=== PATIENT | female | born 1980 | race Two or more races ===

== ENCOUNTER 2024-10-01 09:01 | Outpatient (CLI) | payer OTHER ==
[~2024-10-01 09:01] MED LIST: AZITHROMYCIN250 MG PO; BENZONATATE100 MG PO; ETHAMBUTOL HCL400 MG PO; FAMOTIDINE20 MG PO; Ferro-Plex CAPLET PO; INTESTINEX680 M1 PO; PANTOPRAZOLE SO40 MG PO; RIFAMPIN300 MG PO; Tussi-Organidin Dm-S PO
== END 2024-10-01 09:07 | disposition home or self-care (01) ==
LOC: RAD 09:01
PROVIDERS: ATTEND General Practice
DX: J93.9 Pneumothorax, unspecified (principal); A31.0 Pulmonary mycobacterial infection

== ENCOUNTER 2024-10-01 11:09 | Inpatient (IN) | payer OTHER ==
[~2024-10-01] VITALS: Ht 152.4 cm; Wt 49.9 kg
--- NOTE | 2024-10-01 11:49 | NUR ---
SE RECIBE PTE ALERTA ORIENTADA X3.PTE SE ENCONTRABA EN ESTUDIO DE RADIOLOGIA, RON LA REFIERE A RENZO DE EMERGENCIA POR NEUMOTORAX.SE RECIBE PTE JUNTO A FAMILIAR EN SILLA DE DRE,SE PRIYANKA EKG Y SE PRESENTA A .
[2024-10-01 12:07] LABS: HEMATOCRIT 32.5 % (36.0-45.00); MEAN CELL VOLUME 67.6 fL (80.00-100.00); MEAN CORPUSCULAR HGB CONC 31.9 g/dl (32.0-36.0); PLATELET COUNT 458 K/uL (150-450); RED BLOOD COUNT 4.81 M/uL (4.00-6.00); RED CELL DISTRIBUTION WIDTH 16.5 % (11.5-14.5)
[2024-10-01 12:08] LABS: HEMOGLOBIN 10.4 g/dL (12.0-15.00); MEAN CORPUSCULAR HEMOGLOBIN 21.6 pg (27.00-32.0)
[2024-10-01 12:25] LABS: INR 1.21; PARTIAL THROMBOPLASTIN TIME 32.5 SECONDS (22.0-34.0)
[2024-10-01 12:30] LABS: ALBUMIN 2.8 gm/dL (3.4-5.0); BILIRUBIN TOTAL 0.35 mg/dL (0.3-1.2); CREATININE SERUM 0.6 mg/dL (0.55-1.02); GFR 108.6; GLOBULINA 4.1 G/DL (2.4-3.5); POTASSIUM 4.62 mEq/L (3.5-5.1); TOTAL PROTEIN 6.9 gm/dL (6.4-8.2)
--- NOTE | 2024-10-01 12:55 | NUR ---
SE RECIBE PACIENTE A AREA DE CRITICO, CAMA #3. SE COLOCA CANULA NASAL A 3L. PACIENTE SE CONECTA A MONITOR CARDIACO Y OXIMETRIA DE PULSO CONTINUA. SE CANALIZA X2 EN BRAZO DERECHO CON ANGIOS #18. AMBAS VENOPUNCIONES SE ENCUENTRAN PATENTES, LIBRES DE EDEMA Y PROCESOS INFECCIOSOS. SE EXTRAEN MUESTRAS DE LABORATORIO MONCHO ORDEN MEDICA. SE MANTIENE EN OBSERVACION POR CAMBIOS SIGNIFICATIVOS EN WANG CONDICION.
[2024-10-01 13:47] LABS: PH,URINE 6.5 (5.0-8.0); URINE APPEARANCE Clear; URINE BILIRRUBIN Negative (NEGATIVE); URINE BLOOD Negative; URINE COLOR Yellow; URINE GLUCOSE Negative (NEGATIVE); URINE KETONE Negative (NEGATIVE); URINE LEUKOCYTE Small; URINE NITRATE Negative; URINE PROTEIN Negative (NEGATIVE); URINE UROBILINOGEN 0.2 E.U./dl
[2024-10-01 13:50] LABS: URINE BACTERIA 12.2 uL (0.0-1933); URINE EPITHELIAL CELLS 3.1 uL (0.0-38.8); URINE WBC 23.3 uL (0.0-23.2)
--- NOTE | 2024-10-01 15:39 | NUR ---
SE RECIBE A PACIENTE FEMENINA ALERTA Y ORIENTADA X3 CONECTADA A MONITOR CARDIACO Y OXIMETRIA CONTINUA, SIGNOS VITALES EN MONITOR: BP 100/55 (68), HR 93LT/MIN, SPO2 100% Y RR 18. PACIENTE AL MOMENTO CON NON RE BREATHING MASK AL 50%, TOLERANDO LA MISMA. CANALIZADA CON #18 X2 RT SIDE, PATENTES, LIBRES DE EDEMA Y ERITEMA Y CON H/L. EXTREMIDADES SUPERIORES SE OBSERVAN LIBRES DE EDEMA Y ERITEMA. ABDOMEN NO DISTENDIDO, DEPRESIBLE, BRENDA DE DOLOR A LA PALPACION Y CON PERISTALSIS PRESENTE. PACIENTE ORINA DE MANERA ESPONTANEA. EXTREMIDADES INFERIORES SE OBSERVAN LIBRES DE EDEMA Y ERITEMA. PACIENTE SE MANTIENE EN CAMA A NIVEL DE PISO JUNTO CON BARRANDAS ELEVADAS. PENDIENTE A CONSULTA CON DR. SHADY SOUSA DE MEDICINA INTERNA.
[2024-10-01 15:49] LABS: ABG PH 7.473 (7.35-7.45); ABG pCO2 35.7 mmHg (35-45)
[2024-10-01 15:50] LABS: ABG PO2 136.6 mmHg (80-100); BASE EXCESS 2.3 mmol/l; BICARBONATE 25.6 mmol/l (23-25); SaO2 99.3 %; Tco2 26.7 mmol/l
[2024-10-01 15:54] LABS: o2 32 %
[2024-10-01 15:55] LABS: allen test SATISFACTORY; puncture site RADIAL RIGHT
[2024-10-01] MEDS ORDERED: ALBUTEROL SULFATE 3 ML/2.5 MG AMPUL.NEB IH SCH (17:22)
[2024-10-01] MEDS ORDERED: 0.9 % SODIUM CHLORIDE 1,000 ML IV SCH (17:30)
[2024-10-01] MEDS ORDERED: ONDANSETRON HCL 2 MG/ML VIAL IV PRN (17:45)
[2024-10-01] MEDS ORDERED: ALBUTEROL SULFATE 3 ML/2.5 MG AMPUL.NEB IH ONE (18:03)
[2024-10-01 19:52] VITALS: BP 84/50; O2SAT 100
[2024-10-01] MEDS ORDERED: FAMOTIDINE/PF 20 MG in 0.9 % SODIUM CHLORIDE 8 ML IV PUSH SCH (21:00)
[2024-10-02 00:15] VITALS: BP 90/60; O2SAT 100
[2024-10-02] MEDS ORDERED: ALBUTEROL SULFATE 3 ML/2.5 MG AMPUL.NEB IH ONE (00:41)
[2024-10-02 06:57] LABS: INR 1.2; PARTIAL THROMBOPLASTIN TIME 31.8 SECONDS (22.0-34.0)
[2024-10-02 06:58] LABS: PROTHROMBIN TIME 12.9 SECONDS (9.0-11.5)
[2024-10-02 07:13] LABS: HEMATOCRIT 31.4 % (36.0-45.00); HEMOGLOBIN 9.9 g/dL (12.0-15.00); MEAN CORPUSCULAR HEMOGLOBIN 21.6 pg (27.00-32.0); MEAN CORPUSCULAR HGB CONC 31.4 g/dl (32.0-36.0); PLATELET COUNT 435 K/uL (150-450); RED BLOOD COUNT 4.56 M/uL (4.00-6.00); RED CELL DISTRIBUTION WIDTH 16.3 % (11.5-14.5)
[2024-10-02 07:19] LABS: MEAN CELL VOLUME 68.8 fL (80.00-100.00)
[2024-10-02 07:36] LABS: ERYTHROCYTE SEDIMENTATION RATE > 130 mm/hr
[2024-10-02 07:39] LABS: PH,URINE 6.5 (5.0-8.0); URINE APPEARANCE Cloudy; URINE BILIRRUBIN Negative (NEGATIVE); URINE BLOOD Negative; URINE COLOR Yellow; URINE GLUCOSE Negative (NEGATIVE); URINE KETONE Negative (NEGATIVE); URINE LEUKOCYTE Small; URINE NITRATE Negative; URINE PROTEIN Negative (NEGATIVE); URINE UROBILINOGEN 0.2 E.U./dl
[2024-10-02 07:40] VITALS: BP 80/53; O2SAT 100
[2024-10-02 07:40] LABS: URINE BACTERIA 18.3 uL (0.0-1933); URINE EPITHELIAL CELLS 8.5 uL (0.0-38.8); URINE RBC 12.6 uL (0.0-20.8); URINE WBC 53.7 uL (0.0-23.2)
[2024-10-02 07:43] LABS: URINE CAST 0.14 uL (0.0-1.40)
[2024-10-02 07:53] LABS: ALBUMIN 2.6 gm/dL (3.4-5.0); BILIRUBIN TOTAL 0.5 mg/dL (0.3-1.2); BILIRUBIN,CONJUGATED 0.14 mg/dL (0.0-0.2); BILIRUBIN,UNCONJUGATED 0.36 mg/dL (0.0-0.6); CALCIUM 8.9 mg/dL (8.5-10.1); CHOL HDL RATIO 3.1 (0-5.0); CREATININE SERUM 0.57 mg/dL (0.55-1.02); GFR 115.22; MAGNESIUM 1.9 mg/dL (1.8-2.4); PHOSPHOROUS 4.5 mg/dL (2.5-4.9); POTASSIUM 5.24 mEq/L (3.5-5.1); T4 FREE 1.4 NG/ML (0.76-1.46); TOTAL PROTEIN 6.4 gm/dL (6.4-8.2); TSH 1.74 uIU/mL (0.358-3.74)
[2024-10-02 07:55] LABS: C-REACTIVE PROTEIN 9.16 MG/DL (0.00-0.29)
[2024-10-02] MEDS ORDERED: ENOXAPARIN SODIUM 40 MG/0.4 ML SYRINGE SUBCUTANEO SCH (09:00)
[2024-10-02] MEDS ORDERED: AZITHROMYCIN 500 MG TABLET PO SCH (09:00)
[2024-10-02] MEDS ORDERED: ETHAMBUTOL HCL 400 MG TABLET PO SCH (09:00)
[2024-10-02] MEDS ORDERED: RIFAMPIN 300 MG CAPSULE PO SCH ×2 (09:00)
[2024-10-02] MEDS ORDERED: PATIENTS OWN MEDICATION (MEDICAMENTO EN PISO) IH SCH (17:00)
[2024-10-02 17:41] VITALS: O2SAT 100
[2024-10-02 18:18] VITALS: BP 104/59
[2024-10-02 21:20] VITALS: O2SAT 100
[2024-10-03] VITALS (9 sets, daily range): BP systolic 92–98; BP diastolic 55–69; O2SAT 97–100
[2024-10-04] VITALS (10 sets, daily range): BP systolic 80–83; BP diastolic 48–52; O2SAT 88–100
[2024-10-05] VITALS (11 sets, daily range): BP systolic 81–93; BP diastolic 45–104; O2SAT 94–100
[2024-10-06 01:00] VITALS: O2SAT 97
[2024-10-06 02:03] VITALS: BP 82/48; O2SAT 100
[2024-10-06 06:35] VITALS: O2SAT 100
[2024-10-06 09:10] VITALS: BP 107/60; O2SAT 99
[2024-10-06 09:21] VITALS: O2SAT 98
== END 2024-10-06 12:34 | disposition home or self-care (01) | DRG 868 ==
LOC: ER 11:09 → MEDJ 18:51 → SEC-K 18:51 → MEDJ 10-02 09:42
PROVIDERS: General Practice; ADMIT Internal Medicine; ATTEND Internal Medicine
PROC: BW24ZZZ Computerized Tomography (CT Scan) of Chest and Abdomen (ICD-10-PCS; principal; 2024-10-01)
PROC: 4A12X4Z Monitoring of Cardiac Electrical Activity, External Approach (ICD-10-PCS; 2024-10-02)
DX: A31.2 Disseminated mycobacterium avium-intracellulare complex (DMAC) (principal); J93.12 Secondary spontaneous pneumothorax

== ENCOUNTER 2024-11-08 00:46 | Inpatient (IN) | payer OTHER ==
[~2024-11-08] VITALS: Ht 165.1 cm; Wt 59.0 kg
[2024-11-08] MEDS ORDERED: IPRATROPIUM/ALBUTEROL SULFATE 3 ML AMPUL.NEB IH SCH (01:57)
[2024-11-08] MEDS ORDERED: 0.9 % SODIUM CHLORIDE 1,000 ML IV STA (01:59)
[2024-11-08] MEDS ORDERED: IPRATROPIUM/ALBUTEROL SULFATE 3 ML AMPUL.NEB IH ONE ×3 (02:17→13:42)
[2024-11-08 03:11] LABS: HEMATOCRIT 32.1 % (36.0-45.00); MEAN CELL VOLUME 68.8 fL (80.00-100.00); MEAN CORPUSCULAR HEMOGLOBIN 21.4 pg (27.00-32.0); MEAN CORPUSCULAR HGB CONC 31.2 g/dl (32.0-36.0); PLATELET COUNT 571 K/uL (150-450); RED BLOOD COUNT 4.66 M/uL (4.00-6.00); RED CELL DISTRIBUTION WIDTH 16.7 % (11.5-14.5)
[2024-11-08 03:25] LABS: ALBUMIN 2.9 gm/dL (3.4-5.0); BILIRUBIN TOTAL 0.4 mg/dL (0.3-1.2); CREATININE SERUM 0.66 mg/dL (0.55-1.02); GFR 97.29; GLOBULINA 4.3 G/DL (2.4-3.5); POTASSIUM 4.42 mEq/L (3.5-5.1); TOTAL PROTEIN 7.2 gm/dL (6.4-8.2)
[2024-11-08 03:29] LABS: D DIMER 0.88 MG/L; PARTIAL THROMBOPLASTIN TIME 31.3 SECONDS (22.0-34.0)
[2024-11-08 03:58] LABS: INR 1.2; PROTHROMBIN TIME 12.9 SECONDS (9.0-11.5)
[2024-11-08 04:41] LABS: proBNP 255 pg/mL (0-51.9)
[2024-11-08 04:44] LABS: TROPONIN I hs < 3.0 PG/ML (42.2-82.3)
[2024-11-08 06:38] LABS: ABG PH 7.532 (7.35-7.45); ABG PO2 98.5 mmHg (80-100); ABG pCO2 27.9 mmHg (35-45); BASE EXCESS 1.5 mmol/l; BICARBONATE 22.8 mmol/l (23-25); SaO2 98.4 %; Tco2 23.7 mmol/l
[2024-11-08 06:39] LABS: allen test SATISFACTORY; o2 28 %; puncture site RADIAL LEFT
[2024-11-08 09:19] LABS: URINE APPEARANCE Clear; URINE BACTERIA 7.3 uL (0.0-1933); URINE BILIRRUBIN Negative (NEGATIVE); URINE BLOOD Negative; URINE COLOR Yellow; URINE GLUCOSE Negative (NEGATIVE); URINE KETONE Negative (NEGATIVE); URINE LEUKOCYTE Negative; URINE NITRATE Negative; URINE PROTEIN Negative (NEGATIVE); URINE RBC 3.2 uL (0.0-20.8); URINE UROBILINOGEN 0.2 E.U./dl; URINE WBC 2.4 uL (0.0-23.2)
[2024-11-08 09:43] LABS: URINE EPITHELIAL CELLS 1.2 uL (0.0-38.8)
[2024-11-08] MEDS ORDERED: RINGERS SOLUTION,LACTATED 1,000 ML IV STA (11:24)
[2024-11-08] MEDS ORDERED: CEFAZOLIN SODIUM 1,000 MG VIAL ONE (11:36)
[2024-11-08] MEDS ORDERED: LIDOCAINE HCL 1% 10ML VIAL ONE (11:36)
[2024-11-08] MEDS ORDERED: POVIDONE-IODINE 118 ML BOTT TOP ONE (11:37)
[2024-11-08] MEDS ORDERED: MIDAZOLAM HCL 2 MG/2 ML VIAL IV PUSH ONE (12:30)
[2024-11-08] MEDS ORDERED: CEFAZOLIN SODIUM 1,000 MG VIAL IV ONE (12:30)
[2024-11-08] MEDS ORDERED: MORPHINE SULFATE 2 MG/ML CARTRIDGE IV ONE (12:30)
[2024-11-08 15:00] VITALS: BP 96/72; O2SAT 100
[2024-11-08] MEDS ORDERED: MORPHINE SULFATE 2 MG/ML SYRINGE IV PRN (15:00)
[2024-11-08] MEDS ORDERED: RINGERS SOLUTION,LACTATED 1,000 ML IV SCH (15:00)
[2024-11-08] MEDS ORDERED: BENZONATATE 100 MG CAPSULE PO ONE (15:47)
[2024-11-08] MEDS ORDERED: AZITHROMYCIN 500 MG TABLET PO ONE (15:47)
[2024-11-08] MEDS ORDERED: AZITHROMYCIN 500 MG TABLET PO SCH (17:00)
[2024-11-08] MEDS ORDERED: BENZONATATE 100 MG CAPSULE PO SCH (17:00)
[2024-11-08] MEDS ORDERED: ETHAMBUTOL HCL 400 MG TABLET PO SCH (17:00)
[2024-11-08] MEDS ORDERED: RIFAMPIN 300 MG CAPSULE PO SCH (17:00)
[2024-11-08 19:17] VITALS: BP 100/67; O2SAT 100
[2024-11-08 20:03] VITALS: O2SAT 100
[2024-11-09] VITALS (8 sets, daily range): BP systolic 90–100; BP diastolic 50–60; O2SAT 97–100
[2024-11-09] MEDS ORDERED: RIFAMPIN 300 MG CAPSULE PO SCH ×2 (05:00→11:02)
[2024-11-09] MEDS ORDERED: ETHAMBUTOL HCL 400 MG TABLET PO SCH ×2 (05:00→11:03)
[2024-11-09 08:23] LABS: ALBUMIN 2.5 gm/dL (3.4-5.0); BILIRUBIN TOTAL 0.74 mg/dL (0.3-1.2); CALCIUM 8.6 mg/dL (8.5-10.1); CREATININE SERUM 0.57 mg/dL (0.55-1.02); GFR 115.22; GLOBULINA 3.9 G/DL (2.4-3.5); MAGNESIUM 2.1 mg/dL (1.8-2.4); PHOSPHOROUS 4.8 mg/dL (2.5-4.9); POTASSIUM 4.93 mEq/L (3.5-5.1); TOTAL PROTEIN 6.4 gm/dL (6.4-8.2)
[2024-11-09] MEDS ORDERED: PANTOPRAZOLE SODIUM 40 MG TABLET.DR PO SCH (09:00)
[2024-11-09] MEDS ORDERED: ENOXAPARIN SODIUM 40 MG/0.4 ML SYRINGE SUBCUTANEO SCH (09:00)
[2024-11-09 09:14] LABS: HEMATOCRIT 32.3 % (36.0-45.00); HEMOGLOBIN 9.9 g/dL (12.0-15.00); MEAN CORPUSCULAR HEMOGLOBIN 21.3 pg (27.00-32.0); MEAN CORPUSCULAR HGB CONC 30.7 g/dl (32.0-36.0); PLATELET COUNT 510 K/uL (150-450); RED BLOOD COUNT 4.66 M/uL (4.00-6.00); RED CELL DISTRIBUTION WIDTH 16.6 % (11.5-14.5)
[2024-11-09 09:18] LABS: MEAN CELL VOLUME 69.3 fL (80.00-100.00)
[2024-11-10] VITALS (9 sets, daily range): BP systolic 82–90; BP diastolic 48–53; O2SAT 97–100
[2024-11-10] MEDS ORDERED: AMIKACIN SULFATE 250 MG/ML - 1GM VIAL IV SCH (09:00)
[2024-11-11] VITALS (9 sets, daily range): BP systolic 90–103; BP diastolic 54–65; O2SAT 99–100
[2024-11-12] VITALS (9 sets, daily range): BP systolic 91–111; BP diastolic 53–71; O2SAT 98–100
[2024-11-12] MEDS ORDERED: AMIKACIN SULFATE 250 MG/ML - 1GM VIAL IV SCH ×2 (09:00)
[2024-11-13] VITALS (8 sets, daily range): BP systolic 90–93; BP diastolic 54–56; O2SAT 98–100
[2024-11-13 20:08] LABS: afb spe proc Concentration (.)
[2024-11-13] MEDS ORDERED: CODEINE PHOSPHATE/GUAIFENESIN 5 ML ML PO SCH (23:00)
[2024-11-14] VITALS (9 sets, daily range): BP systolic 80–100; BP diastolic 43–63; O2SAT 90–99
[2024-11-14 07:07] LABS: MEAN CORPUSCULAR HEMOGLOBIN 21.3 pg (27.00-32.0); MEAN CORPUSCULAR HGB CONC 30.9 g/dl (32.0-36.0); PLATELET COUNT 420 K/uL (150-450); RED BLOOD COUNT 4.22 M/uL (4.00-6.00); RED CELL DISTRIBUTION WIDTH 16.4 % (11.5-14.5)
[2024-11-14 07:22] LABS: ALBUMIN 2.4 gm/dL (3.4-5.0); BILIRUBIN TOTAL 0.47 mg/dL (0.3-1.2); CALCIUM 8.6 mg/dL (8.5-10.1); CREATININE SERUM 0.48 mg/dL (0.55-1.02); GFR 140.5; GLOBULINA 3.6 G/DL (2.4-3.5); POTASSIUM 4.54 mEq/L (3.5-5.1)
[2024-11-14 07:28] LABS: MEAN CELL VOLUME 68.7 fL (80.00-100.00)
[2024-11-14 09:23] LABS: FOLIC ACID 4.67 ng/ml (4.78-20)
[2024-11-14] MEDS ORDERED: VITAMIN B COMPLEX 1 EACH PO SCH (09:45)
[2024-11-14] MEDS ORDERED: AMINO ACIDS 1 EACH TABLET PO SCH (09:46)
[2024-11-14] MEDS ORDERED: LACTOBACILLUS ACIDOPHILUS 1 CAP CAP PO SCH (09:46)
[2024-11-14] MEDS ORDERED: IRON FUM,PS/FOLIC/BCOMP,C NO.9 1 CAP CAPSULE PO SCH (09:46)
[2024-11-14 10:05] LABS: IMMUNOGLOBULIN A 289 mg/dL (87-352); IMMUNOGLOBULIN G 1464 mg/dL (586-1602); IMMUNOGLOBULIN M 104 mg/dL (26-217)
[2024-11-15] VITALS (9 sets, daily range): BP systolic 85–93; BP diastolic 52–56; O2SAT 90–100
[2024-11-16] VITALS (9 sets, daily range): BP systolic 90–98; BP diastolic 48–66; O2SAT 97–100
[2024-11-16] MEDS ORDERED: CODEINE PHOSPHATE/GUAIFENESIN 5 ML ML PO SCH (23:45)
[2024-11-17] VITALS (9 sets, daily range): BP systolic 86–108; BP diastolic 55–62; O2SAT 98–100
[2024-11-18] VITALS (10 sets, daily range): BP systolic 90–104; BP diastolic 55–61; O2SAT 89–100
[2024-11-18 06:49] LABS: MEAN CORPUSCULAR HEMOGLOBIN 21.5 pg (27.00-32.0); MEAN CORPUSCULAR HGB CONC 31.1 g/dl (32.0-36.0); PLATELET COUNT 411 K/uL (150-450); RED BLOOD COUNT 4.19 M/uL (4.00-6.00); RED CELL DISTRIBUTION WIDTH 16.7 % (11.5-14.5)
[2024-11-18 06:51] LABS: MEAN CELL VOLUME 69.2 fL (80.00-100.00)
[2024-11-18 07:01] LABS: ALBUMIN 2.4 gm/dL (3.4-5.0); BILIRUBIN TOTAL 0.24 mg/dL (0.3-1.2); CALCIUM 8.9 mg/dL (8.5-10.1); CREATININE SERUM 0.51 mg/dL (0.55-1.02); GLOBULINA 3.8 G/DL (2.4-3.5); POTASSIUM 4.59 mEq/L (3.5-5.1); TOTAL PROTEIN 6.2 gm/dL (6.4-8.2)
[2024-11-19] VITALS (8 sets, daily range): BP systolic 90–98; BP diastolic 52–56; O2SAT 93–100
[2024-11-19] MEDS ORDERED: AMIKACIN SULFATE 10 MG/ML REDILUIDO IV SCH (09:00)
[2024-11-20] VITALS (8 sets, daily range): BP systolic 87–108; BP diastolic 55–69; O2SAT 90–100
[2024-11-21] VITALS (9 sets, daily range): BP systolic 98–109; BP diastolic 62–65; O2SAT 98–100
[2024-11-22] VITALS (8 sets, daily range): BP systolic 93–119; BP diastolic 61–85; O2SAT 99–100
[2024-11-22] MEDS ORDERED: AZITHROMYCIN 500 MG TABLET PO SCH (21:00)
[2024-11-23] VITALS (7 sets, daily range): BP systolic 95–100; BP diastolic 56–64; O2SAT 89–100
[2024-11-24] VITALS (7 sets, daily range): BP systolic 86–103; BP diastolic 52–64; O2SAT 90–100
[2024-11-25 01:25] VITALS: BP 89/51; O2SAT 100
[2024-11-25 06:26] LABS: HEMATOCRIT 29.5 % (36.0-45.00); HEMOGLOBIN 9.3 g/dL (12.0-15.00); MEAN CORPUSCULAR HGB CONC 31.6 g/dl (32.0-36.0); PLATELET COUNT 406 K/uL (150-450); RED BLOOD COUNT 4.25 M/uL (4.00-6.00); RED CELL DISTRIBUTION WIDTH 17.3 % (11.5-14.5)
[2024-11-25 06:31] LABS: MEAN CELL VOLUME 69.5 fL (80.00-100.00)
[2024-11-25 06:50] LABS: ALBUMIN 2.5 gm/dL (3.4-5.0); BILIRUBIN TOTAL 0.21 mg/dL (0.3-1.2); CALCIUM 8.7 mg/dL (8.5-10.1); CREATININE SERUM 0.53 mg/dL (0.55-1.02); GFR 125.32; POTASSIUM 4.28 mEq/L (3.5-5.1); TOTAL PROTEIN 6.5 gm/dL (6.4-8.2)
[2024-11-25 08:45] VITALS: BP 86/54; O2SAT 100
[2024-11-25 17:22] VITALS: BP 99/66; O2SAT 100
[2024-11-25 20:47] VITALS: O2SAT 100
[2024-11-26] VITALS (9 sets, daily range): BP systolic 91–100; BP diastolic 55–62; O2SAT 93–99
[2024-11-26] MEDS ORDERED: AMIKACIN SULFATE 10 MG/ML REDILUIDO IV SCH ×2 (09:00→12:00)
[2024-11-26] MEDS ORDERED: AZITHROMYCIN 500 MG TABLET PO SCH (21:00)
[2024-11-27] VITALS (9 sets, daily range): BP systolic 89–101; BP diastolic 58–64; O2SAT 99–100
[2024-11-27] MEDS ORDERED: BACITRACIN 28.35 GM OINT.TUBE TOP SCH (17:00)
[2024-11-28] VITALS (9 sets, daily range): BP systolic 95–118; BP diastolic 60–80; O2SAT 90–99
[2024-11-28] MEDS ORDERED: AMIKACIN SULFATE 10 MG/ML REDILUIDO IV SCH (09:00)
[2024-11-29] VITALS (10 sets, daily range): BP systolic 92–99; BP diastolic 57–63; O2SAT 96–99
[2024-11-29 12:12] LABS: HEMATOCRIT 35.4 % (36.0-45.00); HEMOGLOBIN 11.2 g/dL (12.0-15.00); MEAN CORPUSCULAR HGB CONC 31.7 g/dl (32.0-36.0); PLATELET COUNT 513 K/uL (150-450); RED BLOOD COUNT 5.09 M/uL (4.00-6.00); RED CELL DISTRIBUTION WIDTH 18.5 % (11.5-14.5)
[2024-11-29 12:14] LABS: MEAN CELL VOLUME 69.6 fL (80.00-100.00)
[2024-11-29 12:27] LABS: BILIRUBIN TOTAL 0.2 mg/dL (0.3-1.2); CALCIUM 9.1 mg/dL (8.5-10.1); CREATININE SERUM 0.61 mg/dL (0.55-1.02); GFR 106.55; GLOBULINA 4.8 G/DL (2.4-3.5); PHOSPHOROUS 4.4 mg/dL (2.5-4.9); POTASSIUM 4.02 mEq/L (3.5-5.1); TOTAL PROTEIN 7.8 gm/dL (6.4-8.2)
[2024-11-30] VITALS (8 sets, daily range): BP systolic 92–113; BP diastolic 55–72; O2SAT 97–99
[2024-12-01] VITALS (9 sets, daily range): BP systolic 86–100; BP diastolic 52–66; O2SAT 95–100
[2024-12-01] MEDS ORDERED: ALBUTEROL SULFATE 3 ML/2.5 MG AMPUL.NEB IH STA (20:00)
[2024-12-02] VITALS (9 sets, daily range): BP systolic 87–160; BP diastolic 51–61; O2SAT 89–100
[2024-12-02] MEDS ORDERED: ALBUTEROL SULFATE 3 ML/2.5 MG AMPUL.NEB IH SCH (09:00)
[2024-12-03] VITALS (9 sets, daily range): BP systolic 99–103; BP diastolic 63–66; O2SAT 89–100
[2024-12-03 09:38] LABS: HEMATOCRIT 31.6 % (36.0-45.00); MEAN CELL VOLUME 70.1 fL (80.00-100.00); MEAN CORPUSCULAR HEMOGLOBIN 22.2 pg (27.00-32.0); MEAN CORPUSCULAR HGB CONC 31.6 g/dl (32.0-36.0); PLATELET COUNT 441 K/uL (150-450); RED BLOOD COUNT 4.51 M/uL (4.00-6.00); RED CELL DISTRIBUTION WIDTH 19.4 % (11.5-14.5)
[2024-12-03 10:49] LABS: ALBUMIN 2.8 gm/dL (3.4-5.0); BILIRUBIN TOTAL 0.24 mg/dL (0.3-1.2); CALCIUM 9.3 mg/dL (8.5-10.1); CREATININE SERUM 0.58 mg/dL (0.55-1.02); GFR 112.93; GLOBULINA 4.3 G/DL (2.4-3.5); MAGNESIUM 2.1 mg/dL (1.8-2.4); POTASSIUM 4.26 mEq/L (3.5-5.1); TOTAL PROTEIN 7.1 gm/dL (6.4-8.2)
[2024-12-04] VITALS (8 sets, daily range): BP systolic 88–97; BP diastolic 51–62; O2SAT 88–100
[2024-12-05] VITALS (8 sets, daily range): BP systolic 90–94; BP diastolic 56–66; O2SAT 93–100
[2024-12-05 10:45] LABS: ALBUMIN 2.6 gm/dL (3.4-5.0); BILIRUBIN TOTAL 0.23 mg/dL (0.3-1.2); CALCIUM 8.8 mg/dL (8.5-10.1); CREATININE SERUM 0.59 mg/dL (0.55-1.02); GFR 110.73; GLOBULINA 3.7 G/DL (2.4-3.5); POTASSIUM 3.96 mEq/L (3.5-5.1); TOTAL PROTEIN 6.3 gm/dL (6.4-8.2)
[2024-12-06 19:08] LABS: afb smear Positive (.); afb spe proc Concentration (.)
[2024-12-09 11:05] LABS: afb culture Positive (.); afb smear Positive (.)
== END 2024-12-05 18:34 | disposition home or self-care (01) | DRG 199 ==
LOC: ER 00:49 → MEDJ 14:56
PROVIDERS: Internal Medicine; Internal Medicine Hematology & Oncology; Internal Medicine Infectious Disease; Student in an Organized Health Care Education/Training Program; ADMIT Internal Medicine; ATTEND Internal Medicine
PROC: BB24Y0Z Computerized Tomography (CT Scan) of Bilateral Lungs using Other Contrast, Unenhanced and Enhanced (ICD-10-PCS; principal; 2024-11-08)
PROC: 4A12X4Z Monitoring of Cardiac Electrical Activity, External Approach (ICD-10-PCS; 2024-11-08)
PROC: 0W9B00Z Drainage of Left Pleural Cavity with Drainage Device, Open Approach (ICD-10-PCS; 2024-11-08)
PROC: BB24ZZZ Computerized Tomography (CT Scan) of Bilateral Lungs (ICD-10-PCS; 2024-11-19)
PROC: BB24ZZZ Computerized Tomography (CT Scan) of Bilateral Lungs (ICD-10-PCS; 2024-11-28)
PROC: 3E0F7GC Introduction of Other Therapeutic Substance into Respiratory Tract, Via Natural or Artificial Opening (ICD-10-PCS; 2024-12-01)
DX: J93.11 Primary spontaneous pneumothorax (principal); J18.9 Pneumonia, unspecified organism; A31.0 Pulmonary mycobacterial infection; N17.8 Other acute kidney failure; I31.39 Other pericardial effusion (noninflammatory); R09.02 Hypoxemia; D64.9 Anemia, unspecified; D72.829 Elevated white blood cell count, unspecified; D75.838 Other thrombocytosis

== ENCOUNTER 2025-01-06 10:27 | Outpatient (CLI) | payer OTHER | END 2025-01-08 10:30 | disposition home or self-care (01) | LOC: RAD 10:27 | PROVIDERS: ATTEND General Practice | DX: A31.0 Pulmonary mycobacterial infection (principal); J47.9 Bronchiectasis, uncomplicated ==

== ENCOUNTER 2025-06-15 08:11 | Emergency (ER) | payer OTHER ==
[~2025-06-15] VITALS: Ht 167.6 cm; Wt 47.6 kg
[2025-06-15] MEDS ORDERED: CLOFAZIMINE1 GM MC (09:17)
[2025-06-15] MEDS ORDERED: KETOROLAC TROMETHAMINE 15 MG VIAL IU ONE (10:00)
[2025-06-15] MEDS ORDERED: IPRATROPIUM/ALBUTEROL SULFATE 3 ML AMPUL.NEB IH ONE ×2 (10:00→10:48)
[2025-06-15] MEDS ORDERED: 0.9 % SODIUM CHLORIDE 1,000 ML IV ONE (10:00)
[2025-06-15] MEDS ORDERED: KETOROLAC TROMETHAMINE 30 MG VIAL ONE (10:32)
[2025-06-15 11:08] LABS: BASO % 0.5 % (0.1-1.2); EOS # 0.14 (0.04-0.54); EOS % 0.9 % (0.7-7.0); LYMPH # 0.90 (1.18-3.74); LYMPH % 5.9 % (19.3-53.1); MEAN PLATELET VOLUME 11.00 fl (9.4-12.4); MONO # 0.77 (0.24-0.82); MONO % 5.0 % (4.7-12.5); NEUT # 13.39 (1.56-6.13); NEUT % 87.3 % (34.0-71.1); RED CELL DISTRIBUTION WIDTH 16.4 % (11.6-14.4)
[2025-06-15 11:25] LABS: INR 1.19
[2025-06-15 11:56] LABS: BUN CREA RATIO 20.0 (7.0-25.0); CREATININE SERUM 0.49 mg/dL (0.55-1.02); GFR 136.57; GLUCOSE FASTING 89.0 mg/dL (65-100); OSMOLALITY SERUM 274.0 MOSM/KG (275-295)
[2025-06-15 13:08] LABS: ABG PH 7.487 (7.35-7.45); ABG PO2 83.5 mmHg (80-100)
[2025-06-15 13:09] LABS: BICARBONATE 25.5 mmol/l (23-25); o2 21 %
[2025-06-15 13:12] LABS: COVID-19 AG NEGATIVE (NEGATIVE)
== END 2025-06-15 14:49 | disposition home or self-care (01) ==
LOC: ER 08:11
PROVIDERS: Emergency Medicine
DX: R06.02 Shortness of breath (principal); Z20.822 Contact with and (suspected) exposure to COVID-19